=== PATIENT | male | born 1980 | race Caucasian/White ===

== ENCOUNTER 2018-02-14 23:25 | Emergency (ER) | payer MEDICAID ==
[~2018-02-14] VITALS: Ht 182.9 cm; Wt 78.0 kg
[2018-02-14 23:36] VITALS: BP 136/93
[2018-02-14] MEDS ORDERED: TETanus/Pertussis (Acell)/Diphther VAC/PF (Tdap-Adult) 0.5ml syringe IM ONE (23:45)
[2018-02-14] MEDS ORDERED: LIDOcaine 1.5% w/epinephrine 1:200,000 5ml ampul IJ ONE (23:45)
== END 2018-02-15 00:22 | disposition home or self-care (01) ==
LOC: ER 23:25
DX: S51.811A Laceration without foreign body of right forearm, initial encounter (principal); F12.10 Cannabis abuse, uncomplicated; W22.8XXA Striking against or struck by other objects, initial encounter; Y93.89 Activity, other specified; Y92.89 Other specified places as the place of occurrence of the external cause; Y99.9 Unspecified external cause status
CPT/HCPCS: 12002; 90471; 90715; 99283; A6223; J3490

== ENCOUNTER 2019-06-12 17:40 | Emergency (ER) | payer MEDICAID, OTHER ==
[~2019-06-12] VITALS: Ht 182.9 cm; Wt 78.6 kg
[2019-06-12] MEDS ORDERED: LISI-600 PO (17:51)
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
[2019-06-12 18:52] LABS: BASOPHILS # (AUTO) 0.1 X10'3 (0-0.2); BASOPHILS % (AUTO) 0.5 % (0-1); EOSINOPHILS # (AUTO) 0.1 X10'3 (0-0.9); EOSINOPHILS % (AUTO) 0.7 % (0-6); HEMATOCRIT 52.5 % (42.0-52.0); LYMPHOCYTES # (AUTO) 1.9 X10'3 (1.1-4.8); LYMPHOCYTES % (AUTO) 18.2 % (21-51); MEAN CORPUSCULAR HEMOGLOBIN 31.5 PG (27.0-31.0); MEAN CORPUSCULAR HGB CONC 34.8 g/dL (33.0-36.5); MEAN CORPUSCULAR VOLUME 90.6 FL (78-98); MEAN PLATELET VOLUME 8.7 FL (7.4-10.4); MONOCYTES # (AUTO) 0.7 X10'3 (0-0.9); MONOCYTES % (AUTO) 7.1 % (2-12); NEUTROPHILS # (AUTO) 7.5 X10'3 (1.8-7.7); NEUTROPHILS % (AUTO) 73.5 % (42-75); PLATELET COUNT 238 X10'3 (140-440); RED CELL DISTRIBUTION WIDTH 13.4 % (11.5-14.5); WHITE BLOOD COUNT 10.2 X10'3 (4.5-11.0)
[2019-06-12 18:57] LABS: HEMOGLOBIN 18.3 g/dl (14.0-17.9)
[2019-06-12 19:03] LABS: ALANINE AMINOTRANSFERASE 32 U/L (12-78); ALBUMIN 4.1 G/DL (3.4-5.0); ALBUMIN/GLOBULIN RATIO 1.1 (1.1-1.5); ALKALINE PHOSPHATASE 164 IU/L (46-116); ANION GAP 6 (8-16); ASPARTATE AMINO TRANSFERASE 15 U/L (10-37); BILIRUBIN,TOTAL 0.9 MG/DL (0.1-1.0); BLOOD UREA NITROGEN 15 MG/DL (7-18); BUN/CREATININE RATIO 14.2 (5.4-32.0); CALCIUM 8.5 MG/DL (8.5-10.1); CHLORIDE 103 MMOL/L (99-107); CREATININE 1.06 MG/DL (0.60-1.10); GLUCOSE 108 MG/DL (70-104); POTASSIUM 4.1 MMOL/L (3.5-5.1); SODIUM 138 MMOL/L (135-145); TOTAL CARBON DIOXIDE 29.4 MMOL/L (24-32); TOTAL PROTEIN 7.7 G/DL (6.4-8.2); eGFR 78 ML/MIN
[2019-06-12 19:11] LABS: ETHANOL < 0.010 GM/DL (0.0-0.010)
[2019-06-12 19:22] LABS: URINE AMPHETAMINE SCREEN POSITIVE (Neg); URINE BARBITUATE SCREEN NEGATIVE (Neg); URINE BENZODIAZEPINES SCREEN NEGATIVE (Neg); URINE CANNABINOID SCREEN NEGATIVE (Neg); URINE COCAINE SCREEN NEGATIVE (Neg); URINE METHADONE SCREEN NEGATIVE (Neg); URINE OPIATE SCREEN NEGATIVE (Neg); URINE PHENCYCLIDINE SCREEN NEGATIVE (Neg)
--- NOTE | 2019-06-12 19:42 | NUR ---
Packet faxed to [phone]
[2019-06-12] MEDS ORDERED: nicotine 14mg patch - 24hr TD ONE (20:05)
--- NOTE | 2019-06-12 20:22 | NUR ---
Elopment band #30 placed on left wrist
--- NOTE | 2019-06-12 23:00 | NUR ---
Patient turning to right side. No distress observed. Continue to monitor.
--- NOTE | 2019-06-13 00:55 | NUR ---
Patient sleeping on right side. No distress observed. Continue to monitor.
--- NOTE | 2019-06-13 02:05 | NUR ---
Patient sleeping on right side. No distress observed. Continue to monitor.
--- NOTE | 2019-06-13 03:47 | NUR ---
Patient sleeping on left side. No distress observed. Continue to mointor.
[2019-06-13 05:30] VITALS: BP_DIAS 108
--- NOTE | 2019-06-13 05:50 | NUR ---
Patient awake after blood pressure. Blood pressure elevated at 151/108. RN looked at triage blood pressure which was also elevated at 177/108. Patient stated he took blood pressure medication about a year ago. RN spoke to Dr Cheng and ordered to restart medication. Patient also will need RXs for both medications until he is able to get connected with a primary physician. RN advised patient of the plan. Continue to monitor.
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
[2019-06-13] MEDS ORDERED: HYDROchlorothiazide 12.5mg capsule PO SCH (08:00)
[2019-06-13] MEDS ORDERED: lisinopril 20mg tablet PO SCH (08:00)
[2019-06-13 08:44] VITALS: BP_SYST 158
--- NOTE | 2019-06-13 09:58 | NUR ---
Resting comfortable, no needs at this time, awaiting MH evaluation
[2019-06-13] MEDS ORDERED: LISI-600 PO (11:12)
== END 2019-06-13 13:41 | disposition home or self-care (01) ==
LOC: ER 17:41
DX: F15.10 Other stimulant abuse, uncomplicated (principal); F12.90 Cannabis use, unspecified, uncomplicated; Z79.899 Other long term (current) drug therapy
CPT/HCPCS: 36415; 80053; 80305; 80320; 85025; 99284; 99285

== ENCOUNTER 2023-05-29 12:41 | Emergency (ER) | payer MEDICAID ==
[~2023-05-29] VITALS: Ht 182.9 cm; Wt 84.1 kg
[~2023-05-29 12:41] MED LIST: LISI20TA28 PO
[2023-05-29 12:49] VITALS: BP 174/110
== END 2023-05-29 15:50 | disposition left against medical advice (07) ==
LOC: ER 12:42
DX: S71.102A Unspecified open wound, left thigh, initial encounter (principal); Z53.21 Procedure and treatment not carried out due to patient leaving prior to being seen by health care provider; X58.XXXA Exposure to other specified factors, initial encounter; Y93.89 Activity, other specified; Y92.89 Other specified places as the place of occurrence of the external cause; Y99.8 Other external cause status
CPT/HCPCS: 99281